=== PATIENT | male | born 1950 | race Caucasian/White ===

== ENCOUNTER 2017-08-12 16:56 | Observation (INO) | payer BC ==
[2017-08-12 17:51] LABS: Hemoglobin 15.4 g/dL (14.0-18.0); Mean Corpuscular HGB CONC 32.9 g/dL (32.0-36.0); Mean Corpuscular Hemoglobin 30.2 pg (27.0-31.0); Mean Corpuscular Volume 91.9 fl (80.0-94.0); Mean Platelet Volume 6.7 fL (7.4-10.4); Platelet Count 217 thou/uL (130-400); RBC Distribution Width 12.7 % (11.5-14.5); White Blood Cell (WBC) Count 5.8 thou/uL (4.8-10.8)
[2017-08-12 18:04] LABS: Band 5 % (5-11); Lymphocytes 33 % (21-51); MDiff Complete? YES; Monocytes 14 % (0-10); Neutrophil 41 % (42-75); PLT Morphology Comment Appears Adequate; RBC Morphology Normal; Reactive Lymphocytes 7 % (0-10)
--- NOTE | 2017-08-12 18:22 | RAD ---
EXAM: TWO VIEWS LEFT HIP 08/12/17 HISTORY: Pain. COMPARISON: None. FINDINGS: Contour of the femoral head is maintained. No fracture. No significant loss of joint space height. IMPRESSION: Two views left hip is unremarkable. POS: [facility]
--- NOTE | 2017-08-12 18:24 | RAD ---
CHEST ONE VIEW 08/12/17 HISTORY: Illness x1 month. Weakness. COMPARISON: 10/30/15. FINDINGS: Atherosclerosis of the aorta. Normal cardiac silhouette. Pulmonary vessels and hilum are normal. Cost ophrenic angles are clear. Chronic changes in the lung bases. Calcified granuloma in the right lung b ase. No consolidation or mass. No pneumothorax or osseous abnormalities. IMPRESSION: Atherosclerosis. No acute cardiopulmonary process. POS: [facility]
[2017-08-12] MEDS ORDERED: Ketorolac Tromethamine 30 MG/ML VIAL ONE (18:27)
[2017-08-12 18:28] LABS: ALT (SGPT) 34 U/L (8-55); AST (SGOT) 40 U/L (5-34); Albumin 3.6 g/dL (3.4-4.8); Alkaline Phosphatase 62 U/L (40-150); Anion Gap 14 mmol/L (10-20); BUN (Urea Nitrogen) 35 mg/dL (8.4-25.7); Bilirubin, Total 0.7 mg/dL (0.2-1.2); Calc. Creatinine Clearance 0 mL/min (70-130); Calcium 8.7 mg/dL (7.8-10.44); Carbon Dioxide 22 mmol/L (23-31); Chloride 103 mmol/L (98-107); Estimated GFR-MDRD 38; Globulin 3.1 g/dL (2.4-3.5); Glucose 105 mg/dL (80-115); Potassium 4.1 mmol/L (3.5-5.1); Protein, Total 6.7 g/dL (5.8-8.1); Sodium 135 mmol/L (136-145)
[2017-08-12 19:01] LABS: CKMB 0.9 ng/mL (0-6.6); Troponin I 0.022 ng/mL (< 0.028)
[2017-08-12] MEDS ORDERED: Oseltamivir 6 MG/ML ORAL SUSP PO SCH (19:30)
[2017-08-12 19:36] LABS: Phosphorus 5.1 mg/dL (2.3-4.7)
[2017-08-12] MEDS ORDERED: hydrALAZINE 20 MG/ML VIAL SLOW IVP PRN (21:12)
[2017-08-12] MEDS ORDERED: Mag-Al 1200 mg/1200 mg/30 ML UDCUP PO PRN (21:12)
[2017-08-12] MEDS ORDERED: Ondansetron ODT 4 MG TAB PO PRN (21:12)
[2017-08-12] MEDS ORDERED: Acetaminophen 325 MG TAB PO PRN (21:12)
[2017-08-12] MEDS ORDERED: Ondansetron HCl/PF 4 MG/2 ML Vial IVP PRN (21:12)
[2017-08-12] MEDS ORDERED: Chloraseptic Spray 180 ml Bottle PO PRN (21:12)
[2017-08-12] MEDS ORDERED: Loratadine 10 MG TAB PO PRN (21:12)
[2017-08-12] MEDS ORDERED: Sodium Chloride 0.65% Nasal 44 ML BOT EA NARE PRN (21:12)
[2017-08-12] MEDS ORDERED: Artificial Tears 18 DROP/0.9 ML EA EYE PRN (21:12)
[2017-08-12] MEDS ORDERED: Milk Of Magnesia 30 ML UDCUP PO PRN (21:12)
[2017-08-12] MEDS ORDERED: Senokot 8.6 MG TAB PO PRN (21:12)
[2017-08-12] MEDS ORDERED: Nitroglycerin 0.4 MG TAB (25 Tab Bottle) SL PRN (21:12)
[2017-08-12] MEDS ORDERED: HYDROcodone/Acetaminophen 5/325 mg Tablet PO PRN (21:12)
[2017-08-12] MEDS ORDERED: Diabetic Tussin 200 MG/10 ML UDCUP PO PRN (21:12)
[2017-08-12] MEDS ORDERED: Loperamide HCl 2 MG CAP PO PRN (21:12)
[2017-08-12] MEDS ORDERED: Eucerin (Mineral Oil/Petrolatum,White) 30 gm Jar TOP PRN (21:12)
[2017-08-12] MEDS ORDERED: Zolpidem Tartrate 5 MG TAB PO PRN (21:12)
[2017-08-12] MEDS ORDERED: Benzonatate 100 MG CAP PO PRN (21:12)
[2017-08-12] MEDS ORDERED: cefTRIAXone\\ROCEPHIN 1 GM in Sodium Chloride 0.9% 100 ML IVPB SCH (21:15)
[2017-08-12 21:31] VITALS: BMI 28.4
[2017-08-12] MEDS: Sodium Chloride 0.9% 1,000 ML IV SCH (22:04)
[2017-08-12 23:05] LABS: Bilirubin Small (Negative); Blood, Urine Negative (Negative); Clarity CLOUDY (Clear); Glucose, Urine (Dipstick) Negative (Negative); Leukocyte Negative (Negative); Nitrite Negative (Negative); Protein, Urine (Dipstick) Negative (Neg-Trace); Specific Gravity, Urine 1.024 (1.002-1.036); pH, Urine 5.5 (5.0-9.0)
[2017-08-12] MEDS: cefTRIAXone\\ROCEPHIN 1 GM, Syringe 0.4 ML in Sterile Water 9.6 ML SLOW IVP SCH (23:18)
[2017-08-12 23:51] LABS: Troponin I 0.024 ng/mL (< 0.028)
--- NOTE | 2017-08-13 00:37 | HP ---
PRIMARY CARE PHYSICIAN: Dr. Mihir Lopez. DATE OF SERVICE: 08/12/2017 REASON FOR ADMISSION: Influenza A, acute kidney failure, and generalized weakness. HISTORY OF PRESENT ILLNESS: A 67-year-old male who has underlying history of hypertension, coronary artery disease, dyslipidemia, tobacco abuse disorder, benign enlargement of prostate, who was brought to the emergency room with complaint of generalized weakness. Patient reports that he has upper respiratory infection for the last several weeks. He was trying all kinds of over the counter medication without any significant relief. He also tried 2 courses of antibiotic without any improvement. Patient denies taking NSAIDs. Today, in the emergency room, he was hypotensive, his blood pressure was 79/48. He was tested for influenza A positive in the emergency room and routine blood tests showed acute kidney failure with elevated creatinine. We are admitting this patient in the hospital for observation. He denies any UTI symptoms. He denies any constipation, melena, hematochezia. He denies any hemoptysis, pleuritic chest pain. He denies any headache or focal motor neurological symptoms. ALLERGIES: No known drug allergies. CURRENT HOME MEDICATIONS: Aspirin 81 mg p.o. daily, Lipitor 10 mg p.o. daily, Coreg 25 mg p.o. b.i.d., Plavix 75 mg p.o. daily, hydralazine 100 mg p.o. daily , hydrochlorothiazide 12.5 mg p.o. daily, Imdur 60 mg p.o. daily, lisinopril 20 mg p.o. daily, Flomax 0.4 mg p.o. daily. REVIEW OF SYSTEMS: The following complete review of systems was negative, unless otherwise mentioned in the HPI or below: Constitutional: Weight loss or gain, ability to conduct usual activities. Skin: Rash, itching. Eyes: Double vision, pain. ENT/Mouth: Nose bleeding, neck stiffness, pain, tenderness. Cardiovascular: Palpitations, dyspnea on exertion, orthopnea. Respiratory: Shortness of breath, wheezing, cough, hemoptysis, fever or night sweats. Gastrointestinal: Poor appetite, abdominal pain, heartburn, nausea, vomiting, constipation, or diarrhea. Genitourinary: Urgency, frequency, dysuria, nocturia. Musculoskeletal: Pain, swelling. Neurologic/Psychiatric: Anxiety, depression. Allergy/Immunologic: Skin rash, bleeding tendency. Please see my HPI for pertinent positives and negatives. All other review of systems reviewed and negative except as mentioned in the HPI. PAST MEDICAL HISTORY: Hypertension, history of VT in 2013. Subsequently, he was diagnosed with coronary artery disease, dyslipidemia. 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 PAST SURGICAL HISTORY: Cardiac catheterization with 1 stent placed in 2013 and replaced in 2016. PAST PSYCHIATRIC HISTORY: Reviewed and negative. SOCIAL HISTORY: Patient is smoking about 4 cigarettes on a daily basis. He denies any alcohol or illicit drug abuse. FAMILY HISTORY: No strong family history of premature coronary artery disease, stroke, or cancer. EMERGENCY ROOM TREATMENT: Patient is given Tamiflu 30 mg, DuoNeb therapy, Toradol 15 mg, and IV fluid. PHYSICAL EXAMINATION: VITAL SIGNS: On arrival, blood pressure 79/48, pulse 77, respiratory rate 22, temperature 97.6, saturation 95% on room air. Weight 88.4 kilograms. GENERAL: Patient is currently alert, awake, no obvious acute distress. HEENT: Normocephalic, atraumatic. Eyes: Pupils are round, reactive to light. Extraocular muscle intact. No nystagmus. ENT: Oropharynx within normal limits. No pharyngeal erythema, nasal congestion noted. No exudate. Moist mucous membranes. NECK: Supple, no JVD, no thyromegaly, no carotid bruit, no meningeal signs of irritation. LUNGS: Clear to auscultation without any rhonchi or rales. CARDIAC: S1, S2 regular without any murmur. ABDOMEN: Soft, bowel sounds present, nontender, nondistended. No organomegaly , no mass, no suprapubic tenderness. BACK: Unremarkable, no CVA tenderness. EXTREMITIES: Upper extremity passive movements of all joints are normal. Lower extremities: No edema. Good peripheral pulsation. SKIN: No skin rash. HEMATOLOGICAL: No lymphadenopathy. PSYCHIATRIC: Normal affect. SIGNIFICANT LABS: 1. CBC: WBC 5.8, hemoglobin 15.4, platelets 217, bandemia with 5%. 2. BMP: Sodium 135, potassium 4.1, chloride 103, carbon dioxide 22, anion gap 14, BUN 35, creatinine 1.82, glucose 105, calcium 8.7, phosphorus 5.1, magnesium 2.0. LFT: AST 40, ALT 34, alkaline phosphatase 62, albumin 3.6. CK 146, CK-MB 0.9, troponin I 0.022. BNP 19.9. Urinalysis normal. Hip x-ray negative for any fracture or dislocation. Chest x-ray negative for any acute cardiopulmonary process. ASSESSMENT AND PLAN: IMPRESSION: 1. Influenza A. This patient has respiratory symptoms and he has influenza A tested positive. We will continue Tamiflu 30 mg p.o. b.i.d. based on renal dose. We will continue symptomatic treatment for flu-like symptoms. 2. Acute kidney failure, likely due to prerenal etiology and poor p.o. intake. Patient will be given IV fluid with NSAID at 125 mL per hour and we will avoid nephrotoxic agents and will repeat BMP tomorrow. 3. Bandemia, likely related with influenza. I am suspecting that patient may have an infectious sinusitis versus bronchitis and that is why we will start Rocephin 1 gram q.24 hours. Upon discharge, we will prescribe levofloxacin or doxycycline and symptomatic treatment for cough will be given while in hospital. 4. Weakness, generalized; likely due to flu-like illness. Patient will need symptomatic treatment. 5. Hypotension, likely due to antihypertensive medication as well as flu-like illness. Patient is given IV fluid and now his blood pressure is improving. We will hold on antihypertensive medication. This patient will need adjustment of blood pressure medication before discharge. 6. Hypertension. Because of low blood pressure, we will hold on antihypertensive medication. 7. Coronary artery disease. We will continue aspirin 81 mg p.o. daily, Lipitor 10 mg p.o. at bedtime, Plavix 75 mg p.o. daily. 8. Coronary artery disease. Continue aspirin, Lipitor, and Plavix, hold on antihypertensive medication because of low blood pressure, dyslipidemia. Continue Lipitor 10 mg p.o. at bedtime 9. Benign enlargement of prostate. Continue Flomax 0.4 mg p.o. daily. 10. Deep venous thrombosis prophylaxis not needed because we are expecting discharge in 24 hours. 11. Gastrointestinal prophylaxis, Pepcid 20 mg p.o. daily. CODE STATUS: The patient is FULL CODE. Patient does not have any surrogate decision maker. Disposition plan based on clinical course, likely within 24 to 48 hours. Plan of care discussed with the patient in detail. MTDD
[2017-08-13 05:20] LABS: Band 10 % (5-11); Hemoglobin 14.1 g/dL (14.0-18.0); Lymphocytes 42 % (21-51); MDiff Complete? YES; Mean Corpuscular HGB CONC 33.3 g/dL (32.0-36.0); Mean Corpuscular Hemoglobin 30.5 pg (27.0-31.0); Mean Corpuscular Volume 91.4 fl (80.0-94.0); Mean Platelet Volume 6.7 fL (7.4-10.4); Monocytes 9 % (0-10); Neutrophil 37 % (42-75); PLT Morphology Comment Appears Adequate; Platelet Count 197 thou/uL (130-400); RBC Distribution Width 12.6 % (11.5-14.5); RBC Morphology Normal; Reactive Lymphocytes 2 % (0-10); Red Blood Cell (RBC) Count 4.64 mill/uL (4.70-6.10); White Blood Cell (WBC) Count 4.7 thou/uL (4.8-10.8)
[2017-08-13 05:24] LABS: Anion Gap 11 mmol/L (10-20); BUN (Urea Nitrogen) 38 mg/dL (8.4-25.7); Calc. Creatinine Clearance 75 mL/min (70-130); Calcium 8.3 mg/dL (7.8-10.44); Carbon Dioxide 26 mmol/L (23-31); Chloride 108 mmol/L (98-107); Estimated GFR-MDRD 60; Glucose 99 mg/dL (80-115); Potassium 3.5 mmol/L (3.5-5.1); Sodium 141 mmol/L (136-145)
[2017-08-13] MEDS: Sodium Chloride 0.9% 1,000 ML IV SCH (06:36)
[2017-08-13] MEDS ORDERED: Potassium Chloride 20 MEQ TAB PO SCH (08:45)
[2017-08-13] MEDS ORDERED: Oseltamivir 75 MG CAP PO SCH (09:00)
[2017-08-13] MEDS ORDERED: Prevnar 13-Val Conj/PF 0.5 ML SYRINGE IM ONE (09:00)
[2017-08-13] MEDS ORDERED: Hydrochlorothiazide 25 MG TAB PO SCH (09:00)
[2017-08-13] MEDS ORDERED: Carvedilol 25 MG TAB PO SCH (09:00)
[2017-08-13] MEDS ORDERED: Non-Formulary Item 1 EACH (Hydrochlorothiazide [Hydrochlorothiazide] 1 TAB) PO SCH (09:00)
[2017-08-13] MEDS: Tamsulosin HCl 0.4 MG CAP PO SCH (09:06)
[2017-08-13] MEDS: Carvedilol 25 MG TAB PO SCH ×2 (09:06→21:54)
[2017-08-13] MEDS: Clopidogrel Bisulfate 75 MG TAB PO SCH (09:06)
[2017-08-13] MEDS: Famotidine 20 MG TAB PO SCH (09:06)
[2017-08-13] MEDS: Aspirin 81 mg Enteric Coated Tablet PO SCH (09:06)
[2017-08-13] MEDS: Oseltamivir 6 MG/ML ORAL SUSP PO SCH ×2 (09:07→21:55)
[2017-08-13] MEDS ORDERED: Melatonin 3 MG TAB PO PRN (12:05)
[2017-08-13] MEDS ORDERED: Melatonin 3 MG TAB PO SCH (12:15)
--- NOTE | 2017-08-13 12:50 | PDOC.PN ---
- Subjective Encounter Start Date: 08/13/17 Encounter Start Time: 12:54 Subjective: No new compolaints. -: No acute events overnight. - Objective Resuscitation Status: Resuscitation Status FULL:Full Resuscitation MAR Reviewed: Yes Vital Signs & Weight: Vital Signs (12 hours) Temp Pulse Resp BP Pulse Ox 08/13/17 12:00 98.0 F 84 14 122/60 95 08/13/17 08:24 97.7 F 64 18 08/13/17 08:00 97.7 F 64 18 142/77 H 93 L 08/13/17 04:00 97.4 F L 62 20 178/90 H 95 Weight Weight 192 lb 6.787 oz I&O: 08/12/17 08/13/17 08/14/17 06:59 06:59 06:59 Intake Total 1365 Output Total 125 175 Balance 1240 -175 Result Diagrams: 08/13/17 04:21 08/13/17 04:21 Phys Exam - Physical Examination Constitutional: NAD HEENT: PERRLA, moist MMs, sclera anicteric Neck: supple, full ROM Respiratory: no wheezing, no rales, no rhonchi, clear to auscultation bilateral Cardiovascular: RRR, no significant murmur, no rub Gastrointestinal: soft, non-tender, no distention, positive bowel sounds Musculoskeletal: no edema, pulses present Neurological: non-focal, moves all 4 limbs Psychiatric: normal affect, A&O x 3 Skin: no rash, normal turgor Dx/Plan (1) JOANNE (acute kidney injury) Code(s): N17.9 - ACUTE KIDNEY FAILURE, UNSPECIFIED Status: Acute Comment: Pre-renal 2/2 poor PO intake. Improving with hydration D/C IVF Encourage on adequate PO intake. (2) Influenza A Code(s): J10.1 - FLU DUE TO OTH IDENT INFLUENZA VIRUS W OTH RESP MANIFEST Status: Acute Comment: Started on Tamiflu. Continue supportive care. (3) Hypotension Status: Acute Qualifiers: Hypotension type: other hypotension type Qualified Code(s): I95.89 - Other hypotension Comment: Likely a combination of acute illness in combination with antihypertensives. meds will be restarted gradually. (4) BPH (benign prostatic hyperplasia) Code(s): N40.0 - BENIGN PROSTATIC HYPERPLASIA WITHOUT LOWER URINRY TRACT SYMP Status: Acute Qualifiers: Lower urinary tract symptom presence: symptoms absent Qualified Code(s): N40.0 - Benign prostatic hyperplasia without lower urinary tract symptoms Comment: Continue home medications. (5) CAD (coronary artery disease) Code(s): I25.10 - ATHSCL HEART DISEASE OF [place] CORONARY ARTERY W/O ANG PCTRS Status: Acute Qualifiers: Coronary Disease-Associated Artery/Lesion type: unspecified vessel or lesion type [place] vs. transplanted heart: [place] heart Associated angina: without angina Qualified Code(s): I25.10 - Atherosclerotic heart disease of [place] coronary artery without angina pectoris Comment: Stable chest pain free. Will restart his home regimen as BP tolerates. (6) HLD (hyperlipidemia) Code(s): E78.5 - HYPERLIPIDEMIA, UNSPECIFIED Status: Acute Qualifiers: Hyperlipidemia type: unspecified Qualified Code(s): E78.5 - Hyperlipidemia , unspecified Comment: Continue Statins (7) Hypertension Code(s): I10 - ESSENTIAL (PRIMARY) HYPERTENSION Status: Acute Qualifiers: Hypertension type: essential hypertension Qualified Code(s): I10 - Essential (primary) hypertension Comment: p/w hypotension, which has resolved. Home meds will be restarted gradually. - Plan cont current plan of care, plan discussed w/ family * .
[2017-08-13] MEDS ORDERED: Atorvastatin Calcium 10 MG TAB PO SCH (21:00)
[2017-08-13] MEDS: cefTRIAXone\\ROCEPHIN 1 GM, Syringe 0.4 ML in Sterile Water 9.6 ML SLOW IVP SCH (21:55)
[2017-08-14] MEDS ORDERED: Lisinopril 20 MG TAB PO SCH (09:00)
[2017-08-14] MEDS ORDERED: hydrALAZINE 25 MG TAB PO SCH ×2 (09:00→21:00)
[2017-08-14] MEDS: Aspirin 81 mg Enteric Coated Tablet PO SCH (09:52)
[2017-08-14] MEDS: Famotidine 20 MG TAB PO SCH (09:52)
[2017-08-14] MEDS: Tamsulosin HCl 0.4 MG CAP PO SCH (09:52)
[2017-08-14] MEDS: Carvedilol 25 MG TAB PO SCH (09:52)
[2017-08-14] MEDS: Clopidogrel Bisulfate 75 MG TAB PO SCH (09:52)
[2017-08-14] MEDS: Oseltamivir 6 MG/ML ORAL SUSP PO SCH (09:53)
[2017-08-14 12:27] VITALS: BP 117/67; TEMP 97.2
--- NOTE | 2017-08-14 18:01 | DIS ---
DATE OF ADMISSION: 08/13/2017 DATE OF DISCHARGE: 08/14/2017 CONDITION AT DISCHARGE: Stable and improved. PRIMARY DIAGNOSES: Influenza A, hypotension, acute kidney injury. SECONDARY DIAGNOSES: Hypertension, coronary artery disease, hyperlipidemia, BPH. MEDICATIONS ON DISCHARGE: Aspirin 81 mg daily, atorvastatin 10 mg daily, Tessalon Perles 100 mg p.o. q.4 hours p.r.n. for cough, carvedilol 25 mg b.i.d., clopidogrel 75 mg daily, hydralazine 100 mg radha ly, hydrochlorothiazide 12.5 mg daily, isosorbide mononitrate 60 mg daily, lisinopril 20 mg daily, os eltamivir 30 mg b.i.d. for 4 days, tamsulosin 0.4 mg p.o. daily. HISTORY OF PRESENT ILLNESS: A 67-year-old male who presented to the emergency room with generalized weakness. He reported upper respiratory tract infection for the last several weeks and tried several [id number] medications without improvement. He was also placed on 2 courses of antibiotics un successfully. He denies NSAID use. At the emergency room, he was found hypotensive with blood press ure of 79/48. Laboratory investigation revealed influenza A and acute kidney injury. He was then ad mitted for further care. HOSPITAL COURSE: He received parenteral fluids and was started on oseltamivir for influenza A. He r esponded to therapy and renal function improved to normal before discharge. He was also gradually re started on his hypertensive medications. PHYSICAL EXAMINATION: He was examined on the day of discharge. CONSTITUTIONAL: Not in acute distress. HEENT: PERRLA. Moist mucous membranes. Anicteric sclerae. NECK: Supple with full range of motion. RESPIRATORY: No wheezes, rales, or rhonchi. LUNGS: Clear to auscultation bilaterally. CARDIOVASCULAR: Regular rate and rhythm with no significant murmurs, rubs, or gallops. GASTROINTESTINAL: Soft, nontender, nondistended, positive bowel sounds, without organomegaly. MUSCULOSKELETAL: No edema. Pulses present bilateral lower extremities. NEUROLOGICAL: Nonfocal. Moves all extremities spontaneously. PSYCHIATRIC: Normal affect. Alert and oriented to time, place, and person. SKIN: No rash, warm, well perfused. CONSULTS: None. PROCEDURES: Chest x-ray was done, which showed atherosclerosis, but no acute cardiopulmonary process . DIET: Heart healthy. ACTIVITY: To resume as tolerated. CARE GOALS: Patient was instructed to follow up with his primary care physician within 1 week of dis charge for repeat labs. He was also instructed to take his medications as prescribed and return to [facility] emergency room if he develops any chest pain, shortness of breath, lightheadedness, or dizziness. Total time of discharge including chart review and documentation 65 minutes.
== END 2017-08-14 13:04 | disposition home or self-care (01) ==
LOC: ERS 16:56 → 2SW 19:13
PROVIDERS: ADMIT Internal Medicine; ATTEND Internal Medicine
DX: J10.1 Influenza due to other identified influenza virus with other respiratory manifestations (principal); I95.9 Hypotension, unspecified; N17.9 Acute kidney failure, unspecified; I10 Essential (primary) hypertension; I25.10 Atherosclerotic heart disease of native coronary artery without angina pectoris; E78.5 Hyperlipidemia, unspecified; N40.0 Benign prostatic hyperplasia without lower urinary tract symptoms; R53.1 Weakness; I25.2 Old myocardial infarction; H91.92 Unspecified hearing loss, left ear; F17.210 Nicotine dependence, cigarettes, uncomplicated; D72.825 Bandemia; Z79.02 Long term (current) use of antithrombotics/antiplatelets; Z79.82 Long term (current) use of aspirin; Z79.899 Other long term (current) drug therapy
CPT/HCPCS: 36415; 71045; 80048; 80053; 81003; 82550; 82553; 83605; 83735; 83880; 84100; 84484; 85025; 87040; 87086; 87804; 93005; 96361; 96374; 96375; 96376; A4216; G0378; J0360; J0696; J1885; J7620

== ENCOUNTER 2017-08-20 22:03 | Emergency (ER) | payer BC ==
[2017-08-20 22:39] LABS: #Eosinphils 0.2 thou/uL (0.0-0.7); #Lymphocytes 2.9 thou/uL (1.20-3.40); #Neutrophils 7.3 thou/uL (1.40-6.50); %Basophils 0.3 % (0.0-1.0); %Eosinophils 1.8 % (0.0-10.0); %Lymphocytes 25.1 % (21.0-51.0); %Monocytes 9.1 % (0.0-10.0); %Neutrophils 63.8 % (42.0-75.0); Hemoglobin 13.6 g/dL (14.0-18.0); Mean Corpuscular HGB CONC 33.9 g/dL (32.0-36.0); Mean Corpuscular Hemoglobin 30.9 pg (27.0-31.0); Mean Corpuscular Volume 91.3 fl (80.0-94.0); Mean Platelet Volume 6.6 fL (7.4-10.4); Platelet Count 285 thou/uL (130-400); RBC Distribution Width 12.5 % (11.5-14.5); Red Blood Cell (RBC) Count 4.39 mill/uL (4.70-6.10); White Blood Cell (WBC) Count 11.4 thou/uL (4.8-10.8)
[2017-08-20 23:02] LABS: ALT (SGPT) 28 U/L (8-55); AST (SGOT) 22 U/L (5-34); Albumin 3.5 g/dL (3.4-4.8); Alkaline Phosphatase 65 U/L (40-150); Anion Gap 11 mmol/L (10-20); BUN (Urea Nitrogen) 26 mg/dL (8.4-25.7); Bilirubin, Total 0.4 mg/dL (0.2-1.2); Calc. Creatinine Clearance 0 mL/min (70-130); Calcium 8.9 mg/dL (7.8-10.44); Carbon Dioxide 25 mmol/L (23-31); Chloride 105 mmol/L (98-107); Estimated GFR-MDRD 75; Glucose 156 mg/dL (80-115); Potassium 3.4 mmol/L (3.5-5.1); Protein, Total 6.5 g/dL (5.8-8.1); Sodium 138 mmol/L (136-145)
[2017-08-20 23:06] LABS: Troponin I 0.015 ng/mL (< 0.028)
--- NOTE | 2017-09-23 15:03 | EKG ---
Test Reason : Blood Pressure : / mmHG Vent. Rate : 065 BPM Atrial Rate : 065 BPM P-R Int : 206 ms QRS Dur : 094 ms QT Int : 414 ms P-R-T Axes : 048 -08 004 degrees QTc Int : 430 ms Normal sinus rhythm Incomplete right bundle branch block Possible Inferior infarct , age undetermined Abnormal ECG Confirmed by LUIS CARLOS DELVALLE ([id number]), film editor supervisor BHUMIKA VELAZQUEZ ([id number] on 09/23/2017 3:02:27 PM Referred By: Confirmed By:LUIS CARLOS DELVALLE
== END 2017-08-21 00:06 | disposition home or self-care (01) ==
LOC: ERS 22:03
DX: I95.9 Hypotension, unspecified (principal); I10 Essential (primary) hypertension; I25.2 Old myocardial infarction; I25.10 Atherosclerotic heart disease of native coronary artery without angina pectoris; E78.00 Pure hypercholesterolemia, unspecified; H91.92 Unspecified hearing loss, left ear; F17.210 Nicotine dependence, cigarettes, uncomplicated; Z79.82 Long term (current) use of aspirin; Z79.02 Long term (current) use of antithrombotics/antiplatelets; Z71.6 Tobacco abuse counseling; Z79.899 Other long term (current) drug therapy
CPT/HCPCS: 80053; 82553; 84484; 85025; 93005; 99406

== ENCOUNTER 2020-11-24 22:12 | Emergency (ER) | payer BC ==
[2020-11-24] MEDS ORDERED: hydrALAZINE 25 MG TAB ONE (23:49)
== END 2020-11-25 00:02 | disposition home or self-care (01) ==
LOC: ERS 22:12
DX: I10 Essential (primary) hypertension (principal); I25.2 Old myocardial infarction; F17.210 Nicotine dependence, cigarettes, uncomplicated; Z79.899 Other long term (current) drug therapy
CPT/HCPCS: 99283

== ENCOUNTER 2021-04-15 15:01 | Outpatient (CLI) | payer BC ==
[2021-04-15 16:10] LABS: Hemoglobin 17.9 g/dL (13.5-17.5); Mean Corpuscular HGB CONC 30.2 g/dL (32.0-36.0); Mean Corpuscular Hemoglobin 22.4 pg (27.0-33.0); Mean Corpuscular Volume 74.3 fl (81.2-95.1); Mean Platelet Volume 9.3 fl (7.4-10.4); Platelet Count 845 10x3/uL (150-450); RBC Distribution Width 18.3 % (11.5-14.5); Red Blood Cell (RBC) Count 7.98 10x6/uL (4.32-5.72); White Blood Cell (WBC) Count 13.7 10x3/uL (3.5-10.5)
[2021-04-15 16:24] LABS: INR-International Normal Ratio 1.1; PTT 38.7 sec (22.0-33.0); Prothrombin Time 11.9 sec (9.5-12.1)
[2021-04-15 16:32] LABS: Anion Gap 12 mmol/L (10-20); BUN (Urea Nitrogen) 19 mg/dL (8.4-25.7); Calc. Creatinine Clearance 0 mL/min (70-130); Calcium 10.2 mg/dL (7.8-10.44); Carbon Dioxide 26 mmol/L (23-31); Chloride 107 mmol/L (98-107); Glucose 87 mg/dL (80-115); Potassium 4.2 mmol/L (3.5-5.1); Sodium 141 mmol/L (136-145)
[2021-04-16 08:53] LABS: SARS-CoV-2 PCR by NAA Not Detected (NotDetected)
== END 2021-04-15 15:02 | disposition home or self-care (01) ==
LOC: LABBT 15:01
PROVIDERS: ATTEND Urology
DX: Z01.812 Encounter for preprocedural laboratory examination (principal); N48.89 Other specified disorders of penis; Z20.822 Contact with and (suspected) exposure to COVID-19
CPT/HCPCS: 80048; 85027; 85610; 85730; U0003; U0005

== ENCOUNTER 2021-04-20 09:42 | Day surgery (SDC) | payer BC ==
[2021-04-19 10:38] VITALS: BMI 29.5
[2021-04-20] MEDS ORDERED: ceFAZolin 2 GM/DEX 5% 100 ML BAG ONE (09:54)
[2021-04-20] MEDS ORDERED: hydrALAZINE 20 MG/ML VIAL ONE (10:51)
[2021-04-20] MEDS ORDERED: Fentanyl 100 MCG/2 ML VIAL ONE (11:30)
[2021-04-20] MEDS ORDERED: Bupivacaine 0.25% HCL 30 ML VIAL ONE (11:36)
[2021-04-20] MEDS ORDERED: Bacitracin Zinc Ointment 30 gm TUBE ONE (11:36)
[2021-04-20] MEDS ORDERED: ePHEDrine 50 MG/ML VIAL ONE (12:10)
[2021-04-20] MEDS ORDERED: PROPOFOL 200 MG/20 ML VIAL ONE (12:10)
[2021-04-20] MEDS ORDERED: Lidocaine 1% PF 5 ML VIAL ONE (12:10)
[2021-04-20] MEDS ORDERED: Glycopyrrolate 0.2 MG/ML 5 ML SYRINGE ONE (12:10)
[2021-04-20] MEDS ORDERED: PHENYLEPHRINE-NS 100 MCG/ML 10 ML SYRINGE ONE (12:10)
== END 2021-04-20 15:34 | disposition home or self-care (01) ==
LOC: SDC 09:42
PROVIDERS: ATTEND Urology
PROC: 0VTTXZZ Resection of Prepuce, External Approach (ICD-10-PCS; principal; 2021-04-20)
PROC: 0VBSXZZ Excision of Penis, External Approach (ICD-10-PCS; principal; 2021-04-20)
DX: C60.9 Malignant neoplasm of penis, unspecified (principal); N48.89 Other specified disorders of penis; I25.10 Atherosclerotic heart disease of native coronary artery without angina pectoris; I25.2 Old myocardial infarction; I10 Essential (primary) hypertension; Z79.02 Long term (current) use of antithrombotics/antiplatelets; Z79.82 Long term (current) use of aspirin; Z79.899 Other long term (current) drug therapy; Z95.5 Presence of coronary angioplasty implant and graft
CPT/HCPCS: 88304; 88305; J0360; J2704; J3010; J3490; S0020

== ENCOUNTER 2021-07-09 10:31 | Emergency (ER) | payer BC ==
[2021-07-09] MEDS ORDERED: traMADol HCl 50 MG TAB ONE (11:35)
[2021-07-09] MEDS ORDERED: Boostrix 0.5 ML (Tdap) VIAL ONE (12:01)
== END 2021-07-09 13:15 | disposition home or self-care (01) ==
LOC: ERS 10:31
DX: S80.12XA Contusion of left lower leg, initial encounter (principal); L03.116 Cellulitis of left lower limb; W22.8XXA Striking against or struck by other objects, initial encounter; I10 Essential (primary) hypertension; I25.2 Old myocardial infarction; I25.10 Atherosclerotic heart disease of native coronary artery without angina pectoris; E78.00 Pure hypercholesterolemia, unspecified; F17.210 Nicotine dependence, cigarettes, uncomplicated
CPT/HCPCS: 90471; 90715

== ENCOUNTER 2021-08-04 02:53 | Emergency (ER) | payer BC ==
[2021-08-04 12:23] LABS: SARS-CoV-2 PCR by NAA DETECTED (NotDetected)
== END 2021-08-04 04:31 | disposition home or self-care (01) ==
LOC: ERS 02:53
DX: U07.1 COVID-19 (principal); I10 Essential (primary) hypertension; E78.00 Pure hypercholesterolemia, unspecified; I25.10 Atherosclerotic heart disease of native coronary artery without angina pectoris; F17.210 Nicotine dependence, cigarettes, uncomplicated
CPT/HCPCS: 71045; 93005; U0003; U0005

== ENCOUNTER 2021-08-14 15:24 | Inpatient (IN) | payer BC ==
[2021-08-14 16:20] LABS: ALT (SGPT) 20 U/L (8-55); AST (SGOT) 32 U/L (5-34); Albumin 3.2 g/dL (3.4-4.8); Alkaline Phosphatase 106 U/L (40-110); Anion Gap 15 mmol/L (10-20); BUN (Urea Nitrogen) 24 mg/dL (8.4-25.7); Bilirubin, Total 1.1 mg/dL (0.2-1.2); Calc. Creatinine Clearance 0 mL/min (70-130); Calcium 9.2 mg/dL (7.8-10.44); Carbon Dioxide 22 mmol/L (23-31); Chloride 102 mmol/L (98-107); Globulin 4.2 g/dL (2.4-3.5); Glucose 87 mg/dL (80-115); Potassium 3.9 mmol/L (3.5-5.1); Protein, Total 7.4 g/dL (5.8-8.1); Sodium 135 mmol/L (136-145)
[2021-08-14] MEDS ORDERED: Albuterol 200 PUFF (6.7GM INHALER) ONE (17:00)
[2021-08-14 17:07] LABS: #Lymphocytes 1.3 thou/uL (1.20-3.40); #Monocytes 1.4 thou/uL (0.11-0.59); %Eosinophils 0.1 % (0.0-10.0); %Lymphocytes 9.7 % (21.0-51.0); %Neutrophils 80.2 % (42.0-75.0); Hemoglobin 18.4 g/dL (14.0-18.0); Mean Corpuscular HGB CONC 31.2 g/dL (32.0-36.0); Mean Corpuscular Hemoglobin 23.1 pg (27.0-31.0); Mean Corpuscular Volume 74.2 fL (78.0-98.0); Mean Platelet Volume 8.2 fL (7.4-10.4); Platelet Count 645 thou/uL (130-400); RBC Distribution Width 17.1 % (11.5-14.5); Red Blood Cell (RBC) Count 7.58 mill/uL (4.70-6.10); White Blood Cell (WBC) Count 13.7 thou/uL (4.8-10.8)
[2021-08-14 17:24] LABS: Anisocytosis SLIGHT = 6-15 cells (100X) (0-5/hpf); MDiff Complete? YES; Microcytosis SLIGHT = 6-15 cells (100X) (0-5/hpf); Platelet Morphology Comment Appears Increased; Polychromasia SLIGHT = 2-3 cells (100X) (0-2/hpf); Target Cells SLIGHT = 2-5 cells (100X) (0-1/hpf)
[2021-08-14 18:40] LABS: Troponin I 0.016 ng/mL (< 0.028)
[2021-08-14] MEDS ORDERED: Dexamethasone 10 MG/ML VIAL ONE (19:46)
[2021-08-14 22:58] VITALS: BMI 25.9
[2021-08-15] MEDS ORDERED: traZODone HCl 50 MG TAB PO PRN (03:34)
[2021-08-15] MEDS ORDERED: Ondansetron PF 4 MG/2 ML Vial IVP PRN (03:39)
[2021-08-15] MEDS ORDERED: Acetaminophen 650 MG Suppository PR PRN (03:39)
[2021-08-15] MEDS ORDERED: Acetaminophen 325 MG TAB PO PRN (03:39)
[2021-08-15] MEDS ORDERED: Ondansetron ODT 4 MG TAB PO PRN (03:39)
[2021-08-15] MEDS ORDERED: Furosemide 40 MG/4 ML VIAL SLOW IVP SCH ×2 (03:45→18:00)
[2021-08-15] MEDS ORDERED: Enoxaparin Sodium 40 MG/0.4 ML SYRINGE SC SCH ×5 (04:00→21:00)
[2021-08-15] MEDS ORDERED: Enoxaparin Sodium 80 MG/0.8 ML SYRINGE SC SCH ×3 (04:15→21:00)
[2021-08-15] MEDS ORDERED: Sodium Chloride 0.9% 1,000 ML IV SCH (05:45)
[2021-08-15] MEDS: Albuterol 200 PUFF (6.7GM INHALER) INH SCH ×3 (06:26→09:49)
[2021-08-15 08:17] VITALS: BP 173/98; TEMP 97.5
[2021-08-15] MEDS ORDERED: Zinc Sulfate 220 MG CAP PO SCH (09:00)
[2021-08-15] MEDS ORDERED: Cholecalciferol (Vitamin D3) 400 UNITS TAB PO SCH (09:00)
[2021-08-15] MEDS ORDERED: Ascorbic Acid 500 mg Chewable Tablet PO SCH (09:00)
== END 2021-08-15 11:05 | disposition home or self-care (01) | DRG 178 ==
LOC: ERS 15:24 → ERHOLD 20:09 → 2SW 22:15
PROVIDERS: ADMIT Student in an Organized Health Care Education/Training Program; ATTEND Internal Medicine
PROC: 8E0ZXY6 Isolation (ICD-10-PCS; principal; 2021-08-14)
DX: U07.1 COVID-19 (principal); E87.1 Hypo-osmolality and hyponatremia; I50.22 Chronic systolic (congestive) heart failure; E86.0 Dehydration; D75.1 Secondary polycythemia; I11.0 Hypertensive heart disease with heart failure; E78.5 Hyperlipidemia, unspecified; I25.10 Atherosclerotic heart disease of native coronary artery without angina pectoris; Z79.82 Long term (current) use of aspirin; Z79.899 Other long term (current) drug therapy; Z95.5 Presence of coronary angioplasty implant and graft
CPT/HCPCS: 36415; 71045; 80053; 83880; 84484; 85379; 93005; J1100; J1650; J7050